=== PATIENT | female | born 1985 | race Two or more races ===

== ENCOUNTER 2020-11-01 01:35 | Emergency (ER) | payer OTHER ==
[~2020-11-01] VITALS: Ht 154.9 cm; Wt 95.3 kg
[2020-11-01 02:48] LABS: Basophils # (auto) 0 10 ^3/uL (0-0.2); Basophils % (auto) 0.3 % (0.0-2.0); Eosinophils # (auto) 0.1 10 ^3/uL (0-0.8); Eosinophils % (auto) 0.6 % (0.0-7.0); Hematocrit 41.4 % (36.0-46.0); Lymphocytes # (auto) 3.1 10 ^3/uL (0.4-5.4); Lymphocytes % (auto) 21.5 % (10.0-50.0); Mean Corpuscular Hemoglobin 27.9 pg (28.0-32.0); Mean Corpuscular Hgb Conc. 33.8 g/dL (32.0-36.0); Mean Corpuscular Volume 82.6 fL (80.0-100.0); Monocytes # (auto) 0.9 10 ^3/uL (0-1.3); Monocytes % (auto) 6.1 % (0.0-12.0); Neutrophils # (auto) 10.2 10 ^3/uL (1.6-8.6); Neutrophils % (auto) 71.5 % (37.0-80.0); Red Blood Cells 5.01 10^6/uL (4.0-5.20); Red Cell Distribution Width 13.9 % (11.8-14.3); White Blood Cell 14.2 10^3/uL (4.4-10.8)
[2020-11-01 03:03] LABS: Albumin 3.6 g/dL (3.4-5.0); Anion Gap 6 (5-15); Blood Urea Nitrogen 19 mg/dL (7-18); Calcium 8.7 mg/dL (8.5-10.1); Carbon Dioxide 27 mmol/L (21-32); Chloride 105 mmol/L (98-107); Glucose 88 mg/dL (74-106); Potassium 3.8 mmol/L (3.5-5.1); Sodium 138 mmol/L (136-145)
[2020-11-01 03:09] LABS: Alanine Aminotransferase 38 U/L (13-56); Alkaline Phosphatase 133 U/L (45-117); Aspartate Aminotransferase 17 U/L (15-37); BUN/Creatinine Ratio 22.6; Bilirubin, Total 1.1 mg/dL (0.2-1.0); GFR African American 100 mL/min; GFR Non-African American 82 mL/min; Total Protein 7.9 g/dL (6.4-8.2)
[2020-11-01 04:47] LABS: INR 0.99 (0.9-1.15); Partial Thromboplastin Time 26.5 sec (23.0-31.2)
[2020-11-01] MEDS ORDERED: KETOROLAC TROMETH 60MG/2ML VIAL IM ONE (07:15)
[2020-11-01] MEDS ORDERED: KETOROLAC TROMETH 60MG/2ML VIAL ONE (07:27)
[2020-11-01 07:32] VITALS: BP 134/80
== END 2020-11-01 08:22 | disposition home or self-care (01) ==
LOC: EDBD 01:41 → ER 01:41
DX: R07.89 Other chest pain (principal); M54.6 Pain in thoracic spine; M54.5 Low back pain
CPT/HCPCS: 36415; 71045; 80053; 83880; 84443; 84484; 85025; 85610; 85730; 93005; 96372; 99285; J1885

== ENCOUNTER 2021-01-16 01:30 | Emergency (ER) | payer OTHER ==
[~2021-01-16] VITALS: Ht 157.5 cm; Wt 97.5 kg
[2021-01-16 01:33] VITALS: BP 108/57
[2021-01-16 02:15] LABS: Hemoglobin 13.3 g/dL (12.2-16.2); Mean Corpuscular Hgb Conc. 33.7 g/dL (32.0-36.0)
[2021-01-16 02:21] LABS: Basophils # (auto) 0 10 ^3/uL (0-0.2); Basophils % (auto) 0.3 % (0.0-2.0); Eosinophils # (auto) 0.1 10 ^3/uL (0-0.8); Eosinophils % (auto) 1.2 % (0.0-7.0); Hematocrit 39.4 % (36.0-46.0); Lymphocytes # (auto) 2.7 10 ^3/uL (0.4-5.4); Lymphocytes % (auto) 26.4 % (10.0-50.0); Mean Corpuscular Hemoglobin 28.2 pg (28.0-32.0); Mean Corpuscular Volume 83.7 fL (80.0-100.0); Monocytes # (auto) 0.6 10 ^3/uL (0-1.3); Neutrophils # (auto) 6.8 10 ^3/uL (1.6-8.6); Neutrophils % (auto) 66.1 % (37.0-80.0); Nucleated Red Blood Cells % 0.1 %; Red Blood Cells 4.71 10^6/uL (4.0-5.20); White Blood Cell 10.2 10^3/uL (4.4-10.8)
[2021-01-16 02:28] LABS: Albumin 3.3 g/dL (3.4-5.0); BUN/Creatinine Ratio 16.4; Calcium 8.7 mg/dL (8.5-10.1); Potassium 4.2 mmol/L (3.5-5.1)
[2021-01-16 02:30] LABS: Bilirubin, Total 0.4 mg/dL (0.2-1.0); Total Protein 7.3 g/dL (6.4-8.2)
== END 2021-01-16 07:56 | disposition left against medical advice (07) ==
LOC: ER 01:32
DX: K59.00 Constipation, unspecified (principal); R51.9 Headache, unspecified
CPT/HCPCS: 36415; 74176; 80053; 82150; 83690; 84702; 85025

== ENCOUNTER 2021-01-19 06:22 | Inpatient (IN) | payer OTHER ==
[~2021-01-19] VITALS: Ht 157.5 cm; Wt 105.9 kg
[2021-01-19 08:11] LABS: Urine Bacteria NONE SEEN /hpf (None Seen); Urine Blood Negative /uL (Negative); Urine Specific Gravity 1.011 (1.001-1.035); Urine WBC 1 /hpf (0 - 5)
[2021-01-19] MEDS ORDERED: MORPHINE SULFATE 4 MG/ML SYR/VIAL IV ONE (09:15)
[2021-01-19] MEDS ORDERED: PROMETHAZINE HCL 25 MG/ML 1ML IV PRN ×2 (09:15→13:45)
[2021-01-19] MEDS ORDERED: SODIUM CHLORIDE 0.9% 500 ML IVB ONE (09:15)
[2021-01-19] MEDS ORDERED: SODIUM CHLORIDE 0.9% 1,000 ML IV ONE (09:15)
[2021-01-19 09:55] LABS: Basophils # (auto) 0 10 ^3/uL (0-0.2); Basophils % (auto) 0.3 % (0.0-2.0); Eosinophils # (auto) 0.1 10 ^3/uL (0-0.8); Eosinophils % (auto) 0.8 % (0.0-7.0); Hematocrit 39.5 % (36.0-46.0); Hemoglobin 13.2 g/dL (12.2-16.2); Lymphocytes # (auto) 2.6 10 ^3/uL (0.4-5.4); Mean Corpuscular Hemoglobin 27.9 pg (28.0-32.0); Mean Corpuscular Hgb Conc. 33.5 g/dL (32.0-36.0); Mean Corpuscular Volume 83.3 fL (80.0-100.0); Monocytes # (auto) 0.6 10 ^3/uL (0-1.3); Neutrophils # (auto) 6.8 10 ^3/uL (1.6-8.6); Neutrophils % (auto) 66.9 % (37.0-80.0); Nucleated Red Blood Cells % 0.1 %; Red Blood Cells 4.74 10^6/uL (4.0-5.20); Red Cell Distribution Width 13.7 % (11.8-14.3); White Blood Cell 10.2 10^3/uL (4.4-10.8)
[2021-01-19 09:59] LABS: Albumin 3.3 g/dL (3.4-5.0); Calcium 8.3 mg/dL (8.5-10.1); Magnesium 2.4 mg/dL (1.6-2.6); Potassium 3.9 mmol/L (3.5-5.1)
[2021-01-19 10:04] LABS: BUN/Creatinine Ratio 14.3; Bilirubin, Total 0.7 mg/dL (0.2-1.0)
[2021-01-19] MEDS ORDERED: IOHEXOL 300 MG/ML 100ML BOTTLE IJ ONE (11:26)
[2021-01-19] MEDS ORDERED: MORPHINE SULFATE INJECTION 2 MG/ML SYRG IV PRN (13:45)
[2021-01-19] MEDS ORDERED: ACETAMINOPHEN 500 MG TAB PO PRN (13:45)
[2021-01-19] MEDS ORDERED: traMADol HCL 50 MG TAB PO PRN (13:45)
[2021-01-19] MEDS: SODIUM CHLORIDE 0.9% 1,000 ML IV SCH ×2 (13:51→23:45)
[2021-01-19 16:17] VITALS: BP 126/73
[2021-01-19 17:20] VITALS: BP 126/73
[2021-01-19 22:00] VITALS: BP 114/73
[2021-01-20 05:00] VITALS: BP 111/60
[2021-01-20 07:22] LABS: Albumin 2.7 g/dL (3.4-5.0); BUN/Creatinine Ratio 10.8; Bilirubin, Total 0.8 mg/dL (0.2-1.0); Calcium 8.2 mg/dL (8.5-10.1); Total Protein 6.6 g/dL (6.4-8.2)
[2021-01-20 07:24] LABS: Basophils # (auto) 0 10 ^3/uL (0-0.2); Basophils % (auto) 0.2 % (0.0-2.0); Eosinophils # (auto) 0.1 10 ^3/uL (0-0.8); Eosinophils % (auto) 1.4 % (0.0-7.0); Hematocrit 41.5 % (36.0-46.0); Hemoglobin 13.5 g/dL (12.2-16.2); Lymphocytes # (auto) 2.5 10 ^3/uL (0.4-5.4); Lymphocytes % (auto) 36.5 % (10.0-50.0); Mean Corpuscular Hemoglobin 27.4 pg (28.0-32.0); Mean Corpuscular Hgb Conc. 32.5 g/dL (32.0-36.0); Mean Corpuscular Volume 84.4 fL (80.0-100.0); Monocytes # (auto) 0.5 10 ^3/uL (0-1.3); Monocytes % (auto) 7.8 % (0.0-12.0); Neutrophils # (auto) 3.8 10 ^3/uL (1.6-8.6); Neutrophils % (auto) 54.1 % (37.0-80.0); Nucleated Red Blood Cells % 0.1 %; Red Blood Cells 4.91 10^6/uL (4.0-5.20); Red Cell Distribution Width 13.7 % (11.8-14.3)
[2021-01-20 07:38] LABS: Potassium 4.7 mmol/L (3.5-5.1)
[2021-01-20 09:00] VITALS: BP 128/69
[2021-01-20] MEDS: SODIUM CHLORIDE 0.9% 1,000 ML IV SCH ×3 (09:30→19:45)
[2021-01-20] MEDS: ENOXAPARIN SOD 40 MG/0.4 ML SYRINGE SC SCH (12:14)
[2021-01-20 14:39] VITALS: BP 121/73
[2021-01-20 22:00] VITALS: BP 104/61
[2021-01-21 05:00] VITALS: BP 101/70
[2021-01-21] MEDS: SODIUM CHLORIDE 0.9% 1,000 ML IV SCH ×2 (05:45→15:34)
[2021-01-21 09:00] VITALS: BP 114/67
[2021-01-21] MEDS: ENOXAPARIN SOD 40 MG/0.4 ML SYRINGE SC SCH (09:49)
[2021-01-21] MEDS ORDERED: LACTULOSE 20Gm/30ML SOLN PO PRN (10:00)
[2021-01-21 13:00] VITALS: BP 117/70
[2021-01-21] MEDS: DOCUSATE SOD 100 MG CAP PO SCH ×2 (13:37→21:11)
[2021-01-21 17:00] VITALS: BP 122/83
[2021-01-21] MEDS: LACTULOSE 20Gm/30ML SOLN PO SCH (21:11)
[2021-01-21 22:00] VITALS: BP 125/76
[2021-01-22] MEDS: SODIUM CHLORIDE 0.9% 1,000 ML IV SCH (01:45)
[2021-01-22 05:00] VITALS: BP 101/51
[2021-01-22 06:00] LABS: Hematocrit 40.7 % (36.0-46.0); Hemoglobin 13.8 g/dL (12.2-16.2); Mean Corpuscular Hgb Conc. 33.8 g/dL (32.0-36.0); Red Blood Cells 4.91 10^6/uL (4.0-5.20); Red Cell Distribution Width 13.7 % (11.8-14.3); White Blood Cell 9.6 10^3/uL (4.4-10.8)
[2021-01-22 06:22] LABS: INR 0.97 (0.9-1.15); Partial Thromboplastin Time 25.7 sec (23.6-33.0)
[2021-01-22 06:37] LABS: Albumin 2.7 g/dL (3.4-5.0); Anion Gap 6 (5-15); Blood Urea Nitrogen 6 mg/dL (7-18); Calcium 7.9 mg/dL (8.5-10.1); Carbon Dioxide 24 mmol/L (21-32); Chloride 109 mmol/L (98-107); Glucose 94 mg/dL (74-106); Magnesium 2.2 mg/dL (1.6-2.6); Potassium 3.7 mmol/L (3.5-5.1); Sodium 139 mmol/L (136-145)
[2021-01-22 06:44] LABS: Alanine Aminotransferase 44 U/L (13-56); Alkaline Phosphatase 117 U/L (45-117); Aspartate Aminotransferase 34 U/L (15-37); BUN/Creatinine Ratio 8.5; Bilirubin, Total 0.4 mg/dL (0.2-1.0); GFR African American 121 mL/min; GFR Non-African American 100 mL/min; Phosphorus 4.1 mg/dL (2.5-4.90); Total Protein 6.1 g/dL (6.4-8.2); Uric Acid 4.7 mg/dL (2.6-6.0)
[2021-01-22 06:55] LABS: Basophils % (manual) 0 (0.0-2.0); Blast Cells 0; Metamyelocytes % 0; Myelocytes % 0; Promyelocytes % 0
[2021-01-22 09:00] VITALS: BP 108/76
[2021-01-22] MEDS: LACTULOSE 20Gm/30ML SOLN PO SCH (09:18)
[2021-01-22] MEDS: ENOXAPARIN SOD 40 MG/0.4 ML SYRINGE SC SCH (09:19)
[2021-01-22] MEDS: DOCUSATE SOD 100 MG CAP PO SCH (09:19)
[2021-01-22 12:51] LABS: Band Neutrophils % (manual) 2; Eosinophils % (manual) 2 (0-7); Lymphocytes % (manual) 27 (10.0-50.0); Monocytes % (manual) 5 (0-12); Reactive Lymphocytes 8
== END 2021-01-22 12:36 | disposition home or self-care (01) | DRG 461 ==
LOC: ER 06:22 → OVERFLOW 13:33 → CENTRAL 15:45
PROVIDERS: ADMIT Internal Medicine; ATTEND Internal Medicine
DX: C64.1 Malignant neoplasm of right kidney, except renal pelvis (principal); E66.01 Morbid (severe) obesity due to excess calories; R07.89 Other chest pain; N28.89 Other specified disorders of kidney and ureter; Z20.822 Contact with and (suspected) exposure to COVID-19; K59.00 Constipation, unspecified; Z68.41 Body mass index [BMI] 40.0-44.9, adult; Z80.3 Family history of malignant neoplasm of breast
CPT/HCPCS: 36415; 71046; 74176; 74178; 80053; 81001; 82306; 83690; 83735; 83880; 84100; 84443; 84484; 84550; 84702; 85007; 85025; 85027; 85610; 85652; 85730; 87426; 94640; 96360; 96361; G0378

== ENCOUNTER 2021-02-16 02:37 | Emergency (ER) | payer OTHER ==
[~2021-02-16] VITALS: Ht 154.9 cm; Wt 106.6 kg
[2021-02-16 04:40] LABS: Urine Bacteria NONE SEEN /hpf (None Seen); Urine Blood Negative /uL (Negative); Urine Mucus FEW (None Seen); Urine Specific Gravity 1.036 (1.001-1.035); Urine WBC 2 /hpf (0 - 5)
[2021-02-16 05:35] VITALS: BP 125/79
[2021-02-16] MEDS ORDERED: ONDANSETRON HCL 4 MG/2 ML VIAL IV ONE (07:30)
[2021-02-16] MEDS ORDERED: SODIUM CHLORIDE 0.9% 1,000 ML IV ONE (07:30)
[2021-02-16 07:36] LABS: Basophils # (auto) 0 10 ^3/uL (0-0.2); Basophils % (auto) 0.3 % (0.0-2.0); Eosinophils # (auto) 0.1 10 ^3/uL (0-0.8); Eosinophils % (auto) 0.7 % (0.0-7.0); Hematocrit 43.1 % (36.0-46.0); Lymphocytes # (auto) 2.3 10 ^3/uL (0.4-5.4); Lymphocytes % (auto) 16.9 % (10.0-50.0); Mean Corpuscular Hemoglobin 27.3 pg (28.0-32.0); Mean Corpuscular Hgb Conc. 32.5 g/dL (32.0-36.0); Mean Corpuscular Volume 83.7 fL (80.0-100.0); Neutrophils # (auto) 10.4 10 ^3/uL (1.6-8.6); Neutrophils % (auto) 75.1 % (37.0-80.0); Red Blood Cells 5.15 10^6/uL (4.0-5.20); Red Cell Distribution Width 13.7 % (11.8-14.3); White Blood Cell 13.8 10^3/uL (4.4-10.8)
[2021-02-16 07:57] LABS: Albumin 3.8 g/dL (3.4-5.0); Calcium 8.9 mg/dL (8.5-10.1); Potassium 3.7 mmol/L (3.5-5.1)
[2021-02-16 08:00] LABS: BUN/Creatinine Ratio 18.4; Total Protein 8.3 g/dL (6.4-8.2)
[2021-02-16] MEDS ORDERED: KETOROLAC TROMETH 30 MG/ML 1ML VIAL IV ONE (09:45)
== END 2021-02-16 10:01 | disposition home or self-care (01) ==
LOC: ER 02:37
DX: K52.9 Noninfective gastroenteritis and colitis, unspecified (principal); N28.1 Cyst of kidney, acquired
CPT/HCPCS: 36415; 74176; 76775; 80053; 81001; 83690; 85025; 96361; 96374; 96375; 99284; J1885; J2405; J7030

== ENCOUNTER 2021-09-01 12:07 | Emergency (ER) | payer OTHER ==
[~2021-09-01] VITALS: Ht 154.9 cm; Wt 104.3 kg
[~2021-09-01 12:07] MED LIST: IBUP600T27 PO; SENN-58 PO; SULF400T11 PO
[2021-09-01] MEDS ORDERED: ALUM & MAG HYDROX-SIMETH LIQ(MAALOX) 30 ML PO ONE (12:45)
[2021-09-01] MEDS ORDERED: LIDOCAINE VISCOUS 2% 15ML UD PO ONE (12:45)
[2021-09-01] MEDS ORDERED: ONDANSETRON ODT 4 MG TAB PO ONE (12:45)
[2021-09-01] MEDS ORDERED: FAMOTIDINE 20 MG TAB PO ONE (12:45)
[2021-09-01 13:48] LABS: Basophils # (auto) 0 10 ^3/uL (0-0.2); Basophils % (auto) 0.5 % (0.0-2.0); Eosinophils # (auto) 0.1 10 ^3/uL (0-0.8); Eosinophils % (auto) 1.6 % (0.0-7.0); Hematocrit 39.7 % (36.0-46.0); Hemoglobin 13.3 g/dL (12.2-16.2); Lymphocytes # (auto) 1.9 10 ^3/uL (0.4-5.4); Lymphocytes % (auto) 28.7 % (10.0-50.0); Mean Corpuscular Hemoglobin 27.6 pg (28.0-32.0); Mean Corpuscular Hgb Conc. 33.5 g/dL (32.0-36.0); Mean Corpuscular Volume 82.3 fL (80.0-100.0); Monocytes # (auto) 0.3 10 ^3/uL (0-1.3); Monocytes % (auto) 5.2 % (0.0-12.0); Neutrophils # (auto) 4.3 10 ^3/uL (1.6-8.6); Nucleated Red Blood Cells % 0.1 %; Red Blood Cells 4.82 10^6/uL (4.0-5.20); Red Cell Distribution Width 13.7 % (11.8-14.3); White Blood Cell 6.7 10^3/uL (4.4-10.8)
[2021-09-01 13:53] LABS: Albumin 3.1 g/dL (3.4-5.0); BUN/Creatinine Ratio 10.6; Calcium 8.6 mg/dL (8.5-10.1); Potassium 3.9 mmol/L (3.5-5.1)
[2021-09-01 13:55] LABS: Bilirubin, Total 0.9 mg/dL (0.2-1.0); Total Protein 6.9 g/dL (6.4-8.2)
[2021-09-01 14:04] VITALS: BP 108/72
[2021-09-01 14:12] LABS: Urine Bacteria NONE SEEN /hpf (None Seen); Urine Blood Negative /uL (Negative); Urine Mucus MODERATE (None Seen); Urine Specific Gravity 1.027 (1.001-1.035); Urine WBC 9 /hpf (0 - 5)
[2021-09-01] MEDS ORDERED: CEPH-322 PO (14:59)
== END 2021-09-01 15:13 | disposition home or self-care (01) ==
LOC: ER 12:10
DX: N39.0 Urinary tract infection, site not specified (principal); K80.20 Calculus of gallbladder without cholecystitis without obstruction
CPT/HCPCS: 36415; 76705; 80053; 81001; 81025; 83690; 85025; 99284; Q0162

== ENCOUNTER 2021-09-03 05:38 | Emergency (ER) | payer OTHER ==
[~2021-09-03] VITALS: Ht 160 cm; Wt 104.3 kg
[~2021-09-03 05:38] MED LIST changes: +CEPH-322 PO
[2021-09-03] MEDS ORDERED: ONDANSETRON HCL 4 MG/2 ML VIAL IV ONE (07:00)
[2021-09-03] MEDS ORDERED: SODIUM CHLORIDE 0.9% 1,000 ML IVB ONE (07:00)
[2021-09-03] MEDS ORDERED: TAMSULOSIN HYDROCHLORIDE 0.4 MG CAP PO ONE (07:00)
[2021-09-03] MEDS ORDERED: KETOROLAC TROMETH 30 MG/ML 1ML VIAL IV ONE (07:00)
[2021-09-03 08:00] LABS: Basophils # (auto) 0 10 ^3/uL (0-0.2); Basophils % (auto) 0.4 % (0.0-2.0); Eosinophils # (auto) 0.1 10 ^3/uL (0-0.8); Eosinophils % (auto) 1.5 % (0.0-7.0); Hematocrit 41.3 % (36.0-46.0); Hemoglobin 13.7 g/dL (12.2-16.2); Lymphocytes # (auto) 2.1 10 ^3/uL (0.4-5.4); Lymphocytes % (auto) 26.3 % (10.0-50.0); Mean Corpuscular Hemoglobin 27.6 pg (28.0-32.0); Mean Corpuscular Hgb Conc. 33.3 g/dL (32.0-36.0); Mean Corpuscular Volume 82.9 fL (80.0-100.0); Monocytes # (auto) 0.5 10 ^3/uL (0-1.3); Monocytes % (auto) 5.9 % (0.0-12.0); Neutrophils # (auto) 5.3 10 ^3/uL (1.6-8.6); Neutrophils % (auto) 65.9 % (37.0-80.0); Nucleated Red Blood Cells % 0.1 %; Red Blood Cells 4.98 10^6/uL (4.0-5.20); White Blood Cell 8.1 10^3/uL (4.4-10.8)
[2021-09-03 08:24] LABS: Albumin 3.3 g/dL (3.4-5.0); Calcium 8.7 mg/dL (8.5-10.1); Potassium 4.4 mmol/L (3.5-5.1)
[2021-09-03 08:28] LABS: BUN/Creatinine Ratio 14.6; Bilirubin, Total 0.7 mg/dL (0.2-1.0); Total Protein 7.2 g/dL (6.4-8.2)
[2021-09-03 10:17] VITALS: BP 99/56
[2021-09-03 10:31] LABS: Urine Bacteria NONE SEEN /hpf (None Seen); Urine Blood Negative /uL (Negative); Urine Mucus FEW (None Seen); Urine WBC 5 /hpf (0 - 5)
== END 2021-09-03 10:22 | disposition home or self-care (01) ==
LOC: ER 05:38
DX: R10.9 Unspecified abdominal pain (principal); E46 Unspecified protein-calorie malnutrition; Z68.41 Body mass index [BMI] 40.0-44.9, adult; Z79.1 Long term (current) use of non-steroidal anti-inflammatories (NSAID); Z79.899 Other long term (current) drug therapy
CPT/HCPCS: 36415; 74176; 80053; 81001; 83690; 85025; 96361; 96374; 96375; 99284; J1885; J2405; J7030

== ENCOUNTER 2021-11-29 00:46 | Emergency (ER) | payer OTHER ==
[~2021-11-29] VITALS: Ht 157.5 cm; Wt 99.0 kg
[2021-11-29 02:53] LABS: Urine Bacteria FEW /hpf (None Seen); Urine Blood Negative /uL (Negative); Urine Mucus FEW (None Seen); Urine Specific Gravity 1.031 (1.001-1.035); Urine WBC 7 /hpf (0 - 5)
[2021-11-29 03:08] LABS: Basophils # (auto) 0 10 ^3/uL (0-0.2); Basophils % (auto) 0.3 % (0.0-2.0); Eosinophils # (auto) 0.3 10 ^3/uL (0-0.8); Neutrophils # (auto) 8.5 10 ^3/uL (1.6-8.6); Neutrophils % (auto) 68.3 % (37.0-80.0); White Blood Cell 12.5 10^3/uL (4.4-10.8)
[2021-11-29 03:10] LABS: Eosinophils % (auto) 2.3 % (0.0-7.0); Hematocrit 43.6 % (36.0-46.0); Hemoglobin 13.9 g/dL (12.2-16.2); Lymphocytes # (auto) 2.8 10 ^3/uL (0.4-5.4); Lymphocytes % (auto) 22.6 % (10.0-50.0); Mean Corpuscular Hemoglobin 26.5 pg (28.0-32.0); Mean Corpuscular Volume 82.7 fL (80.0-100.0); Monocytes # (auto) 0.8 10 ^3/uL (0-1.3); Monocytes % (auto) 6.5 % (0.0-12.0); Nucleated Red Blood Cells % 0.1 %; Red Blood Cells 5.27 10^6/uL (4.0-5.20); Red Cell Distribution Width 13.8 % (11.8-14.3)
[2021-11-29 03:31] LABS: Albumin 3.4 g/dL (3.4-5.0); Calcium 8.9 mg/dL (8.5-10.1); Potassium 3.9 mmol/L (3.5-5.1)
[2021-11-29 03:34] LABS: BUN/Creatinine Ratio 15.1; Bilirubin, Total 0.4 mg/dL (0.2-1.0); Total Protein 7.8 g/dL (6.4-8.2)
[2021-11-29 07:30] VITALS: BP 126/79
[2021-11-29] MEDS ORDERED: NITR-87 PO (07:41)
[2021-11-29] MEDS ORDERED: cefTRIAXone 1GM/50ML D5W 50 ML IV ONE (07:45)
[2021-11-29] MEDS ORDERED: cefTRIAXone SOD 1,000 MG VL IM ONE (08:30)
[2021-11-29] MEDS ORDERED: LIDOCAINE 2% (LOCAL ANESTH.) PF 5ml SDV IJ ONE (08:30)
[2021-11-29] MEDS ORDERED: LIDOCAINE 2%HCL (LOCAL ANESTH.) INJ 20ML MDV ONE (08:38)
== END 2021-11-29 08:45 | disposition home or self-care (01) ==
LOC: ER 00:46
DX: R10.84 Generalized abdominal pain (principal); N39.0 Urinary tract infection, site not specified; Z79.1 Long term (current) use of non-steroidal anti-inflammatories (NSAID); Z79.899 Other long term (current) drug therapy
CPT/HCPCS: 36415; 71045; 74176; 80053; 81001; 83690; 83880; 85025; 96372; 99285; J0696; J2001

== ENCOUNTER 2022-02-13 16:11 | Emergency (ER) | payer OTHER ==
[~2022-02-13] VITALS: Ht 154.9 cm; Wt 100.0 kg
[~2022-02-13 16:11] MED LIST changes: +NITR-87 PO
[2022-02-13] MEDS ORDERED: CEPH-510 PO (22:37)
[2022-02-13] MEDS ORDERED: ACET-1079 PO (22:38)
[2022-02-13] MEDS ORDERED: CEPHALEXIN 250 MG CAP PO ONE (22:45)
[2022-02-13] MEDS ORDERED: KETOROLAC TROMETH 60MG/2ML VIAL IM ONE (22:45)
[2022-02-14 00:07] VITALS: BP 110/56
== END 2022-02-14 00:40 | disposition home or self-care (01) ==
LOC: ER 16:11
DX: N39.0 Urinary tract infection, site not specified (principal); M25.552 Pain in left hip; Z79.899 Other long term (current) drug therapy
CPT/HCPCS: 72192; 96372; 99284; J1885

== ENCOUNTER 2022-03-18 17:36 | Emergency (ER) | payer OTHER ==
[~2022-03-18] VITALS: Ht 154.9 cm; Wt 99.2 kg
[~2022-03-18 17:36] MED LIST changes: +ACET-1079 PO; +CEPH-510 PO
[2022-03-18 18:56] VITALS: BP 112/71
[2022-03-18 21:46] LABS: Urine Bacteria NONE SEEN /hpf (None Seen); Urine Blood Negative /uL (Negative); Urine Mucus FEW (None Seen); Urine Specific Gravity 1.024 (1.001-1.035); Urine WBC 42 /hpf (0 - 5); Urine WBC Clumps PRESENT /hpf (None Seen)
[2022-03-18] MEDS ORDERED: CEPH-510 PO (22:13)
[2022-03-18] MEDS ORDERED: IBUP800T27 PO (22:13)
[2022-03-18] MEDS ORDERED: ACETAMINOPHEN/CODEINE#3 (300/30mg) TAB PO ONE (22:15)
[2022-03-18] MEDS ORDERED: ONDANSETRON ODT 4 MG TAB PO ONE (22:15)
== END 2022-03-18 22:23 | disposition home or self-care (01) ==
LOC: ER 17:36
DX: G43.409 Hemiplegic migraine, not intractable, without status migrainosus (principal); N39.0 Urinary tract infection, site not specified; Z20.822 Contact with and (suspected) exposure to COVID-19
CPT/HCPCS: 36415; 81001; 81025; 87426; 87804; 99283; Q0162

== ENCOUNTER 2022-08-22 05:52 | Emergency (ER) | payer OTHER ==
[~2022-08-22] VITALS: Ht 154.9 cm; Wt 94.5 kg
[~2022-08-22 05:52] MED LIST changes: +IBUP800T27 PO
[2022-08-22 06:38] VITALS: BP 117/89
[2022-08-22] MEDS ORDERED: IBUP800T27 PO (08:42)
[2022-08-22] MEDS ORDERED: OME20GT PO (08:42)
[2022-08-22] MEDS ORDERED: PANTOPRAZOLE 40 MG TAB PO ONE (08:45)
[2022-08-22] MEDS ORDERED: ACETAMINOPHEN 500 MG TAB PO ONE (08:45)
== END 2022-08-22 08:53 | disposition home or self-care (01) ==
LOC: ER 05:52
DX: M54.41 Lumbago with sciatica, right side (principal); K21.9 Gastro-esophageal reflux disease without esophagitis; G89.29 Other chronic pain; Z79.1 Long term (current) use of non-steroidal anti-inflammatories (NSAID); Z79.899 Other long term (current) drug therapy
CPT/HCPCS: 93971

== ENCOUNTER 2024-12-04 19:35 | Emergency (ER) | payer OTHER ==
[~2024-12-04] VITALS: Ht 157.5 cm; Wt 88.4 kg
[~2024-12-04 19:35] MED LIST changes: -CEPH-322 PO; +CEPH250C PO; +HYDR-4902 PO; +IBUP-1454 PO; +IBUP-1456 PO; -IBUP600T27 PO; -IBUP800T27 PO; +METH-1181 PO; +OME20GT PO; +PRED20TA2 PO
[2024-12-04 19:37] VITALS: BP 131/71; PULSE 83; RESP 17; TEMP 97.8; O2SAT 100
[2024-12-04] MEDS: KETOROLAC TROMETH 60MG/2ML VIAL IM ONE (20:17)
[2024-12-04] MEDS: diazePAM 5 MG TAB PO ONE (20:17)
--- NOTE | 2024-12-04 20:41 | ED.PDOC ---
History of Present Illness HPI Comments 39 y/o obese F presents with c/c right-posterior neck and head pain. Patient endorses on 3x day history of pain following initial, unprovoked and atraumatic onset. She comments on pain worsening with movement. Denies any vision or speech changes, dizziness, lightheadedness, or further associated symptoms. Chief Complaint: Headache Time Seen by MD: 19:50 Primary Care Provider: NONE Reviewed Notes: Nurses Notes, Medications, Allergies Allergies: Coded Allergies: NO KNOWN ALLERGIES (Unverified , 11/01/20) Home Meds Active Scripts Hydrocodone-Acetaminophen (Hydrocodone Bitartrate/AC 5-325 mg) 1 Tab Tab, 1 TAB PO Q6HP PRN, #12 TAB Prov:GWEN ROSE 07/12/23 Prednisone (Prednisone) 20 Mg Tab, 60 MG PO DAILY for 5 Days, #15 TAB Prov:GWEN ROSE 07/12/23 Methocarbamol (Methocarbamol) 500 Mg Tab, 500 MG PO TIDPRN PRN, #20 TAB Prov:GWEN ROSE 07/12/23 Omeprazole (Prilosec Susp (For Gt)) 20 Mg Ss, 40 MG PO DAILY, #20 TAB Prov:PARKER SPENCE 08/22/22 Ibuprofen (Ibuprofen) 800 Mg Tab, 1 TAB PO TID, #30 TAB Prov:PARKER SPENCE 08/22/22 Ibuprofen (Ibuprofen) 800 Mg Tab, 1 TAB PO TID PRN, #30 TAB 0 Refills Prov:ROSA CAMPBELL 03/18/22 Cephalexin ( Keflex 500) 500 Mg Cap, 1 CAP PO BID for 7 Days, #14 CAP 0 Refills Prov:ROSA CAMPBELL 03/18/22 Acetaminophen (Tylenol) 325 Mg Tb, 500 MG PO QIDP for 10 Days, #62 TAB Prov:SOO CASTILLO DO 02/13/22 Cephalexin ( Keflex 500) 500 Mg Cap, 1 CAP PO QID for 7 Days, #30 CAP Prov:SOO CASTILLO DO 02/13/22 Nitrofurantoin Monohydrate Mac (Macrobid) 100 Mg Cap, 100 MG PO BID for 7 Days, #14 CAP Prov:BERNADETTE JOSE MD 11/29/21 Cephalexin (KEFLEX CAPSULE) 250 Mg Cp, 250 MG PO QID for 10 Days, #40 TAB Prov:KENNA FRANKEL MD 09/01/21 Ibuprofen (Ibuprofen) 600 Mg Tab, 600 MG PO TID for 5 Days, #15 TAB Prov:RICHARD TRACY MD 08/11/21 Senna (Senokot) 8.6 Mg Tab, 1 TAB PO BID for 10 Days, #20 TAB Prov:RICHARD TRACY MD 08/11/21 Sulfamethoxazole-Trimethoprim (Bactrim) 1 Tab Tab, 1 TAB PO BID for 10 Days, #20 TAB Prov:RICHARD TRACY MD 08/11/21 Information Source: Patient Mode of Arrival: Ambulatory Severity: Moderate Timing: Days Duration: Since onset Prehospital treatment: None Past Medical History PAST MEDICAL HISTORY: GERD Past Medical History (Other): chronic low back pain Surgical History: Denies all surgeries CRAB PICKER History: No Pertinent CRAB PICKER History Family History Family History: Reviewed,noncontributory to illness Social History Smoker: Non-Smoker Alcohol: Denies ETOH Use Drugs: Denies Drug Use Lives In: Home All Other Systems: Reviewed and Negative (Comprehensive systems review obtained and negative except for what is stated in the HPI.) Physical Exam General Appearance: No Apparent Distress, Obese HEENT: Pharynx Normal, TMs Normal, Other (right trapezius tenderness, worse with lateral movement of the neck) Neck: Full Range of Motion, Non-Tender, Normal, Normal Inspection, Other (right trapezius tenderness, worse with lateral movement of the neck) Respiratory: Chest Non-Tender, Lungs Clear, No Accessory Muscle Use, No Respiratory Distress, Normal Breath Sounds Cardiovascular: No Edema, No JVD, No Murmur, No Gallop, Normal Peripheral Pulses, Regular Rate/Rhythm Breast Exam: Deferred Gastrointestinal: No Organomegaly, Non Tender, No Pulsatile Mass, Normal Bowel Sounds, Soft Genitalia: Deferred Pelvic: Deferred Rectal: Deferred Extremities: No calf tenderness, Normal capillary refill, Normal inspection, Normal range of motion, Non-tender, No pedal edema Musculoskeletal : Apperance: Normal Neurologic: Alert, tank car loader II-XII nml as Tested, No Motor Deficits, Normal Affect, Normal Mood, No Sensory Deficits Cerebellar Function: Normal Reflexes: Normal Skin: Dry, Normal Color, Warm Lymphatic: No Adenopathy Was a procedure done? Was a procedure done?: No Differential Dx Considerations may include: musculoskeletal pain, sprain, DDD, torticollis X-Ray, Labs, Meds, VS Vital Signs Date Time Temp Pulse Resp B/P (MAP) Pulse Ox O2 Delivery O2 Flow Rate FiO2 12/04/24 19:37 97.8 83 17 131/71 100 97.8 Current Medications Medications (Trade) Dose Ordered Sig/Kitty Route Start Time Stop Time Status Last Admin Diazepam (Valium Tablet) 5 mg ONCE ONCE PO 12/04/24 20:00 12/04/24 20:01 DC 12/04/24 20:17 Ketorolac Tromethamine (Toradol Injection) 60 mg ONCE ONCE IM 12/04/24 20:00 12/04/24 20:01 DC 12/04/24 20:17 Time of 1ST Reevaluation: 20:50 Reevaluation 1ST: Unchanged Time of 2ND Reevaluation: 21:17 Reevaluation 2ND: Improved (Patient is feeling improved but with a to have something more to resolve her pain) Time of 3RD Reevaluation: 21:31 Reevaluation 3RD: Improved Patient Education/Counseling: Diagnosis, Treatment, Prognosis, Need For Follow Up Family Education/Counseling: No Family Present Comments Patient has musculoskeletal neck pain with point tenderness at the insertion site of the trapezius. Patient's symptoms improved with medication treatments. She does not have midline tenderness. She has had no traumas. She has a normal neurovascular symptoms. And was started her on Flexeril and Motrin. SEPSIS Sepsis Screen Date sepsis recognized/suspect: Dec 04, 2024 Time Sepsis recognized/suspect: 1936 Recent Procedure: No On Antibiotic Therapy: No Respiratory Rate >20: No Heart Rate >90: No Temp<36 C (96.8 F) or >38.3 C: No SBP <90 or MAP <65 mmHG: No New Acute Mental Status Change: No Is the patient on CPAP, BIPAP,: No Physician Orders Fentanyl Citrate Injection (12/04/24 21:30) Vital Signs Date Time Temp Pulse Resp B/P (MAP) Pulse Ox O2 Delivery O2 Flow Rate FiO2 12/04/24 19:37 97.8 83 17 131/71 100 97.8 Medications Medications Dose Ordered Sig/Kitty Route Start Time Stop Time Status Last Admin Dose Admin Diazepam 5 mg ONCE ONCE PO 12/04/24 20:00 12/04/24 20:01 DC 12/04/24 20:17 Ketorolac Tromethamine 60 mg ONCE ONCE IM 12/04/24 20:00 12/04/24 20:01 DC 12/04/24 20:17 Departure 1 Departure Time of Disposition: 21:32 Impression: Primary Impression: Torticollis Disposition: 01 HOME / SELF CARE / HOMELESS Condition: Good e-Prescriptions Ibuprofen Micronized (MOTRIN TABLET) 600 Mg Tb 600 MG PO TID PRN, #40 TAB *Black box warning-NSAIDS can increase risk of [place] & hypertension, GI irritation, ulceration, bleed, perferation. Do not use post cardiac surgery. Use short duration/lowest effective dose. Prov: LUCAS GLEASON MD 12/04/24 Cyclobenzaprine Hcl (CYCLOBENZAPRINE HCL) 7.5 Mg Tab 7.5 MG PO Q8HP PRN for 3 Days, #9 TAB Prov: LUCAS GLEASON MD 12/04/24 Discharged With: Self Critical Care Note Critical Care Time?: No Stability Stability form required: No Heart Score Heart Score: Heart Score Response (Comments) Value History N/A 0 EKG N/A 0 Age N/A 0 Risk Factors N/A 0 Troponin N/A 0 Total 0 I personally scribed for LUCAS GLEASON MD ([email or web address]) on 12/04/24 at 20:41. Elec tronically submitted by Mukul Mg ([email or web address]). LUCAS GLEASON MD Dec 04, 2024 20:41
[2024-12-04] MEDS ORDERED: fentaNYL CITRATE 100 MCG/2 ML VL IM ONE (21:30)
[2024-12-04] MEDS ORDERED: IBU600T PO (21:33)
[2024-12-04] MEDS ORDERED: CYCL-838 PO (21:33)
== END 2024-12-05 | disposition home or self-care (01) ==
LOC: ER 19:35
DX: M43.6 Torticollis (principal); K21.9 Gastro-esophageal reflux disease without esophagitis; G89.29 Other chronic pain; E66.9 Obesity, unspecified; Z68.35 Body mass index [BMI] 35.0-35.9, adult; Z79.899 Other long term (current) drug therapy; Z79.52 Long term (current) use of systemic steroids; Z79.1 Long term (current) use of non-steroidal anti-inflammatories (NSAID)
CPT/HCPCS: 96372; 99283; J1885